=== PATIENT | male | born 1965 | race Caucasian/White ===

== ENCOUNTER → 2016-04-05 | Outpatient (CLI) | payer BC, OTHER ==
[~2016-04-05] MED LIST: ASPEC81 PO; ATOR-26 PO; NIAC500T11 PO; OXYC-57 PO
[2016-04-05 14:25] LABS: ALT/SGPT 26 U/L (12-78); BLOOD UREA NITROGEN 16 mg/dl (7-18); BUN/CREATININE RATIO 14.7 (10-20); CALCIUM 8.9 mg/dl (8.5-10.1); CARBON DIOXIDE 27 mmol/L (21-32); CHLORIDE 105 mmol/L (98-107); CHOLESTEROL 177 mg/dl (0-200); GLUCOSE 108 mg/dl (70-99); SODIUM 141 mmol/L (136-145); TRIGLYCERIDES 133 mg/dl (0-150); VERY LOW DENSITY LIPOPROT CALC 27 mg/dl
[2016-04-05 14:30] LABS: CHOLESTEROL/HDL RATIO 4.2; HDL CHOLESTEROL 42 mg/dl; PROSTATE SPECIFIC ANTIGEN 0.579 ng/ml (0.000-4.000)
== END | disposition home or self-care (01) ==
LOC: C.LABMFLN 04-05 07:51
PROVIDERS: ATTEND Family Medicine
DX: Z12.5 Encounter for screening for malignant neoplasm of prostate (principal); E78.00 Pure hypercholesterolemia, unspecified

== ENCOUNTER → 2016-04-08 | Outpatient (CLI) | payer BC, OTHER ==
[2016-04-08 13:14] LABS: MANUAL MICROSCOPIC REQUIRED? NO; REVIEW REQ? NO; URINE APPEARANCE CLEAR (CLEAR); URINE BILIRUBIN NEG (NEG); URINE COLOR YELLOW; URINE NITRITE NEG (NEG); UROBILINOGEN NEG (NEG)
== END | disposition home or self-care (01) ==
LOC: C.LABMFLN 10:30
PROVIDERS: ATTEND Family Medicine
DX: N40.1 Benign prostatic hyperplasia with lower urinary tract symptoms (principal); R39.15 Urgency of urination

== ENCOUNTER → 2017-04-07 | Outpatient (CLI) | payer BC ==
[2017-04-07 14:00] LABS: ALT/SGPT 22 U/L (12-78); BLOOD UREA NITROGEN 14 mg/dl (7-18); CALCIUM 8.4 mg/dl (8.5-10.1); CARBON DIOXIDE 29 mmol/L (21-32); CREATININE 1.07 mg/dl (0.60-1.40); GLUCOSE 104 mg/dl (70-99); POTASSIUM 3.8 mmol/L (3.5-5.1); SODIUM 139 mmol/L (136-145)
[2017-04-07 14:03] LABS: CHOLESTEROL 149 mg/dl (0-200); LDL CHOLESTEROL CALCULATED 80 mg/dl
== END | disposition home or self-care (01) ==
LOC: C.LABMFLN 07:56
PROVIDERS: ATTEND Family Medicine
DX: Z00.00 Encounter for general adult medical examination without abnormal findings (principal); E78.00 Pure hypercholesterolemia, unspecified; M16.12 Unilateral primary osteoarthritis, left hip; Z12.5 Encounter for screening for malignant neoplasm of prostate

== ENCOUNTER 2017-07-31 05:58 | Inpatient (IN) | payer BC, OTHER ==
[2017-07-30 08:03] VITALS: BMI 29.0
--- NOTE | 2017-07-30 08:37 | PAT Medication Instructions ---
Service Date July 30, 2017. Current Home Medication List Acetaminophen (Tylenol), 1,000 MG PO BID Aspirin Enteric Coated (Ecotrin Or Generic), 81 MG PO QAM Loratadine (Claritin), 10 MG PO QAM Polyethylene Glycol 3350 (Miralax), 17 GM PO DAILY PRN for Constipation Ranitidine (Zantac), 150 MG PO BID Rosuvastatin Calcium (Crestor), 40 MG PO QAM Tramadol (Ultram), 1 TAB PO TID PRN for Pain Medication Instructions For Your Scheduled Surgery - Hold the following medications the morning of surgery: Loratadine (Claritin), 10 MG PO QAM Polyethylene Glycol 3350 (Miralax), 17 GM PO DAILY PRN for Constipation - Take the following medications the morning of surgery with a sip of water: Acetaminophen (Tylenol), 1,000 MG PO BID (if needed, can be taken up to four hours before surgery) Aspirin Enteric Coated (Ecotrin Or Generic), 81 MG PO QAM Ranitidine (Zantac), 150 MG PO BID Rosuvastatin Calcium (Crestor), 40 MG PO QAM Tramadol (Ultram), 1 TAB PO TID PRN for Pain (if needed, can be taken up to four hours before surgery) - Take the following medications as scheduled the night before surgery: Acetaminophen (Tylenol), 1,000 MG PO BID Polyethylene Glycol 3350 (Miralax), 17 GM PO DAILY PRN for Constipation (if needed) Ranitidine (Zantac), 150 MG PO BID If you have any questions please call us at [phone] or [phone] or [phone]
--- NOTE | 2017-07-30 09:25 | DIAGNOSTIC IMAGING REPORT ---
CHEST 2 VIEWS ROUTINE HISTORY: Preop. COMPARISON: None. FINDINGS: The lungs are clear. Cardiac silhouette is normal in size. No pleural effusions. No pneumothorax. IMPRESSION: No acute process. Electronically signed by: Isael Regan M.D. 07/30/2017 9:24 AM Dictated Date/Time: 07/30/2017 9:21 AM
[2017-07-30 11:19] LABS: BASO % 0.8 %; BASO ABS # 0.04 K/uL (0-0.2); EOS % 5.6 %; EOS ABS # 0.27 K/uL (0-0.5); HEMATOCRIT 45.3 % (42-52); HEMOGLOBIN 15.6 g/dL (14.0-18.0); IG# 0.01 K/uL (0.00-0.02); LYMPH % 44.1 %; LYMPH ABS # 2.11 K/uL (1.2-3.4); MEAN CELL VOLUME 91.5 fL (80-100); MEAN CORPUSCULAR HEMOGLOBIN 31.5 pg (25-34); MEAN CORPUSCULAR HGB CONC 34.4 g/dl (32-36); MEAN PLATELET VOLUME 9.5 fL (7.4-10.4); MONO % 10.9 %; MONO ABS # 0.52 K/uL (0.11-0.59); NEUT % 38.4 %; NEUT ABS # 1.83 K/uL (1.4-6.5); PLATELET COUNT 171 K/uL (130-400); RED CELL DISTRIBUTION WIDTH SD 43.3 fL (36.4-46.3); WHITE BLOOD COUNT 4.78 K/uL (4.8-10.8)
[2017-07-30 11:27] LABS: INR 0.9 (0.9-1.1); PTT PATIENT 25.7 SECONDS (21.0-31.0)
[2017-07-30 11:42] LABS: CREATININE 0.98 mg/dl (0.60-1.40)
--- NOTE | 2017-07-30 18:19 | HISTORY & PHYSICAL EXAMINATION ---
DATE OF ADMISSION: 07/31/2017 CHIEF COMPLAINT: Left hip pain. HISTORY OF PRESENT ILLNESS: A 52-year-old gentleman recently retired who presents for treatment of his left hip. He is referred to me by his primary care doctor for evaluation and treatment of his left hip. He has a several-month history of markedly increasing left hip pain and discomfort. He was initially seen by Dr. Beasley who is managing him for some back issues and put some injections around his back, which did not help at all. He describes mostly lateral hip pain, groin pain radiating down to his knee. The more he walks, the more it hurts. He has taken various anti-inflammatories without much relief. He did take some oral prednisone which seemed to help the most. Pain has become more debilitating. He limps when he walks. The more he walks, he hurts. He really has more pain the next day if he is very active. He would like to have his left hip fixed. PAST MEDICAL HISTORY: 1. Elevated cholesterol. 2. Arthritis. 3. A [id number] history of smoking. PAST SURGICAL HISTORY: Include: 1. Neck surgery done by Dr. Son in 2010. 2. Right knee scope done by Ora in 2010. ALLERGIES: None. CURRENT MEDICATIONS: 1. Crestor. 2. Ranitidine. 3. Aspirin. 4. Aleve. SOCIAL HISTORY: A 52-year-old male. He is a retired rn [employer]. He is . One drink per week. Chews tobacco. FAMILY HISTORY: Significant for heart disease and lung cancer. REVIEW OF SYSTEMS: Negative for diabetes, neurologic problems, vascular problems, bleeding disorders. Denies any chest pain, no shortness of breath. No history of DVT or PE. PHYSICAL EXAMINATION: GENERAL: Reveals a pleasant, middle-aged male, looks to be in good health. HEENT: Benign. NECK: Supple. No lymphadenopathy. LUNGS: Clear to auscultation. HEART: Has a regular rate and rhythm. ABDOMEN: Soft, nontender, nondistended. EXTREMITIES: Grossly neurovascularly intact except as follows. Examination of left hip reveals the patient walks with a significant antalgic gait and limps on his left side. Seems to have a little bit of a flexion contracture of his hip as he walks a little bit hunched over. Leg lengths are equal. He has pain with hip motion, particularly internal rotation. I can internally rotate to neutral. Negative straight leg raise. X-RAYS: X-rays of the left hip were reviewed. Shows significant medial arthritic change with narrowing of his medial joint space and osteophytes inferiorly. A superior joint space is pretty well maintained. We did get an MRI of his hip from previously due to his severe pain and x-ray findings. MRI shows a joint effusion. He has got some bone marrow edema in the femoral head at the superior aspect. 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 Radiographs are not severe, but his MRI confirms significant inflammation of the hip which is consistent with his exam. He has failed all conservative treatment. PLAN: We talked about treatment. After following him for a while I am convinced that most of the pain is coming from his hip joint. I did talk to him about his exam and findings and symptoms are a bit more severe than I would suspect based on his radiographs. Despite this, I think it is reasonable to proceed with hip replacement considering his convincing exam and physical findings. He is strongly desiring to proceed with hip replacement. We will take him to the operating room and do left total hip replacement. The risks and benefits of this procedure were explained to the patient including but not limited to DVT, PE, , infection, neurological injury, vascular injury, bleeding problem, pain, limited range of motion, stiffness, failure to symptoms, incomplete relief of symptoms, need for further surgery in the future, fracture, leg length inequality, nerve palsy, dislocation, need for revision surgery. The patient understands and desires to proceed. Informed consent was obtained.
[~2017-07-31] VITALS: Ht 188 cm; Wt 102.0 kg
[2017-07-31] VITALS (20 sets, daily range): BP systolic 101–130; BP diastolic 63–87; PULSE 55–77; TEMP 36.4–37.5; O2SAT 95–100; Ht 188 cm; Wt 102.0 kg
[~2017-07-31 05:58] MED LIST changes: +ACET-1256 PO; -ASPEC81 PO; +ASPI-319 PO; -ATOR-26 PO; +CLR10 PO; -NIAC500T11 PO; -OXYC-57 PO; +POLY335019 PO; +RANI150T85 PO; +ROSU40TA PO; +TRAM-10 PO
[2017-07-31] MEDS ORDERED: FAMOTIDINE 20 MG TAB PO SCH (06:00)
[2017-07-31] MEDS ORDERED: LACTATED RINGER'S 1000ML 500 ML IV SCH (06:00)
[2017-07-31] MEDS ORDERED: ACETAMINOPHEN 500 MG TAB PO SCH (06:00)
[2017-07-31] MEDS ORDERED: METOCLOPRAMIDE HCL 10 MG TAB PO SCH (06:00)
[2017-07-31] MEDS ORDERED: GABAPENTIN 600 MG PO SCH (06:00)
[2017-07-31] MEDS ORDERED: TRANEXAMIC ACID INJ 1,000 MG x 1 Bag Preop IV SCH ×2 (06:00)
[2017-07-31] MEDS ORDERED: LACTATED RINGER'S 1000ML IV SCH (06:00)
[2017-07-31] MEDS ORDERED: CEFAZOLIN 2000MG IV PUSH 15 ML IV SCH (06:00)
[2017-07-31] MEDS ORDERED: SCOPOLAMINE 1.5 MG TDSY TD SCH (06:00)
[2017-07-31] MEDS ORDERED: LACTATED RINGER'S 1000ML 1,000 ML IV SCH (06:00)
--- NOTE | 2017-07-31 06:49 | History & Physical Bridge Note ---
H&P Re-Evaluation Bridge Note: I have examined the patient, reviewed the History & Physical and in the interval since the performance of the History & Physical I have noted the following changes of clinical significance: No changes noted
[2017-07-31] MEDS ORDERED: BUPIVACAINE 0.5 % 5 MG/1 ML PF 10ML VIAL ONE (06:58)
[2017-07-31] MEDS ORDERED: FENTANYL CITRATE INJ 50 MCG/1 ML 2 ML VIAL ONE (07:59)
[2017-07-31] MEDS ORDERED: MIDAZOLAM HCL 1 MG/ML 2ML VIAL ONE (08:00)
[2017-07-31] MEDS ORDERED: EpINEphrine INJ 1MG/ML AMP 1 MG/ML AMP ONE (08:25)
[2017-07-31] MEDS ORDERED: BACITRACIN 50000 UNIT VIAL ONE (08:25)
[2017-07-31] MEDS ORDERED: MoRPHine SULFATE PF 1 MG/ML 10 ML AMP/VIAL ONE ×2 (08:47→08:48)
[2017-07-31] MEDS ORDERED: BUPIVACAINE/EPINEPHRINE 0.5% MPF 1:200,000 30 ML VIAL INFIL ONE (09:30)
[2017-07-31] MEDS ORDERED: LACTATED RINGER'S 1000ML 500 ML IV PRN (09:34)
[2017-07-31] MEDS ORDERED: SODIUM CHLORIDE 0.9% 1000ML 1,000 ML IV PRN (09:34)
[2017-07-31] MEDS ORDERED: NALOXONE HCL INJ 0.08 MG in SYRINGE 1.8 ML IV PRN (09:34)
[2017-07-31] MEDS ORDERED: NALOXONE HCL INJ 1 MG in SODIUM CHLORIDE 0.9% 1000ML 1,000 ML IV PRN (09:34)
[2017-07-31] MEDS ORDERED: MoRPHine SULFATE PF 1 MG/ML 10 ML AMP/VIAL EPI PRN (09:45)
[2017-07-31] MEDS ORDERED: ATROPINE SULFATE 0.1 MG/ML 5ML SYR IV PRN (09:45)
[2017-07-31] MEDS ORDERED: NALOXONE HCL 0.4 MG/1 ML VIAL/CARP IV PRN (09:45)
[2017-07-31] MEDS ORDERED: BUPIVACAINE/EPINEPHRINE 0.5% MPF 1:200,000 30 ML VIAL ONE ×2 (09:45→09:47)
[2017-07-31] MEDS ORDERED: EpHEDrine SULFATE INJ 50 MG/ML AMP IV PRN ×2 (09:45)
[2017-07-31] MEDS ORDERED: NALBUPHINE HCL INJ 10 MG/ML AMP IV PRN (09:45)
[2017-07-31] MEDS ORDERED: DiphenhydrAMINE HCL 50 MG/ML VIAL IV PRN (09:45)
[2017-07-31] MEDS ORDERED: NO NARCOTICS OR SEDATIVES SCH (09:45)
[2017-07-31] MEDS ORDERED: ONDANSETRON INJ 2 MG/ML 2 ML VIAL ONE (10:06)
[2017-07-31] MEDS ORDERED: PROPOFOL IV EMULSION 10 MG/ML 20 ML VIAL ONE (10:06)
--- NOTE | 2017-07-31 10:40 | [facility] Post Operative Brief Note ---
Immediate Operative Summary Operative Date July 31, 2017. Pre-Operative Diagnosis Left Hip DJD Post-Operative Diagnosis Same Procedure(s) Performed Left Total Hip Arthroplasty Surgeon Giorgio Soil Science Professor Surgeon(s) JANNETH Dueñas Estimated Blood Loss 300 cc Findings Consistent with Post-Op Diagnosis Fluids (cc crystalloids) 1500 cc Specimens Femoral Head Drains None Anesthesia Type Spinal MAC Complication(s) none Disposition Accompanied Pt To Recover: yes Disposition: Recovery Room / PACU Overlapping Procedure I was present for: the critical portions of procedure. I was immediately available: during the entire case
[2017-07-31] MEDS ORDERED: SILVER SULFADIAZINE 1% CR 50 GM JAR EXT PRN (10:45)
[2017-07-31] MEDS ORDERED: POLYETHYLENE (MIRALAX) 17 GM PACK PO PRN (10:45)
[2017-07-31] MEDS ORDERED: TAMSULOSIN HCL 0.4 MG CAP PO PRN (10:45)
[2017-07-31] MEDS ORDERED: CEFAZOLIN IV 2,000 MG in DEXTROSE 5% 50ML 50 ML IV SCH (10:45)
[2017-07-31] MEDS ORDERED: ALUMINUM/MAGNESIUM/SIMETH (MAALOX MAX) 30 ML UDC PO PRN (10:45)
[2017-07-31] MEDS ORDERED: METOCLOPRAMIDE HCL INJ 5 MG/ML 2 ML VIAL IV PRN (10:45)
[2017-07-31] MEDS ORDERED: BISACODYL 10 MG SUPP PR PRN (10:45)
[2017-07-31] MEDS ORDERED: MAGNESIUM HYDROXIDE SUSP 30 ML UDC PO PRN (10:45)
[2017-07-31] MEDS ORDERED: ONDANSETRON INJ 2 MG/ML 2 ML VIAL IV PRN (10:45)
--- NOTE | 2017-07-31 11:36 | DIAGNOSTIC IMAGING REPORT ---
L PELVIS/UNILATERAL HIP 1 VIEW CLINICAL HISTORY: Left hip degenerative joint disease. Arthritis. COMPARISON: Left hip radiograph July 24, 2017. FINDINGS: Alignment of the total left hip arthroplasty is anatomic. There is no fracture or unexpected radiopaque foreign body. Acetabular screws and skin yu. IMPRESSION: Expected findings following total left hip arthroplasty. Electronically signed by: Rich Benavidez M.D. 07/31/2017 11:35 AM Dictated Date/Time: 07/31/2017 11:34 AM
--- NOTE | 2017-07-31 11:37 | Anesthesiology Progress Note ---
Anesthesia Post Op Note Date & Time July 31, 2017 at 11:37 Vital Signs Pain Intensity: 0 Vital Signs Past 12 Hours Date Time Temp Pulse Resp B/P (MAP) Pulse Ox O2 Delivery O2 Flow Rate FiO2 07/31/17 11:33 54 11 108/68 07/31/17 11:33 54 11 97 07/31/17 11:31 88/58 07/31/17 11:28 52 11 97 07/31/17 11:28 52 11 07/31/17 11:26 100/58 07/31/17 11:23 55 10 07/31/17 11:23 52 10 97 07/31/17 11:21 93/58 07/31/17 11:18 54 11 100 07/31/17 11:18 53 11 07/31/17 11:17 55 14 07/31/17 11:17 54 14 98 07/31/17 11:16 36.4 50 16 104/61 (68) 98 Nasal Cannula 2 07/31/17 11:16 104/61 07/31/17 11:12 69 14 97 07/31/17 11:12 65 14 07/31/17 11:11 93/64 07/31/17 11:07 70 27 91 07/31/17 11:07 76 27 07/31/17 11:06 112/67 07/31/17 11:02 52 0 99 07/31/17 11:02 54 0 07/31/17 11:01 95/61 07/31/17 10:57 59 9 07/31/17 10:57 54 9 100 07/31/17 10:56 104/60 07/31/17 10:55 53 10 98 07/31/17 10:55 57 10 07/31/17 10:51 97/62 07/31/17 10:50 56 11 07/31/17 10:50 54 11 99 07/31/17 10:46 96/61 07/31/17 10:45 62 15 07/31/17 10:45 15 07/31/17 10:41 93/88 07/31/17 10:40 81 19 85 07/31/17 10:40 36.4 73 16 93/88 (91) 95 Oxymask 10 07/31/17 10:40 185 19 07/31/17 06:40 36.7 65 18 130/87 99 Room Air Notes Mental Status: alert / awake / arousable, participated in evaluation Pt Amnestic to Procedure: Yes Nausea / Vomiting: adequately controlled Pain: adequately controlled Airway Patency, RR, SpO2: stable & adequate BP & HR: stable & adequate Hydration State: stable & adequate Neuraxial Anesthesia: was administered, sensory block is resolving Anesthetic Complications: no major complications apparent
[2017-07-31] MEDS ORDERED: PHENYLEPHRINE HCL INJ 10 MG/ML VIAL ONE (12:30)
--- NOTE | 2017-07-31 12:36 | OPERATIVE REPORT ---
DATE OF OPERATION: 07/31/2017 SURGEON: Lucio Alvares MD SETUP OPERATOR: JOSE Espinoza PREOPERATIVE DIAGNOSIS: Left hip degenerative joint disease. POSTOPERATIVE DIAGNOSIS: Left hip degenerative joint disease. PROCEDURE PERFORMED: Left uncemented ceramic on highly cross-linked polyethylene total hip arthroplasty. COMPLICATIONS: None. ESTIMATED BLOOD LOSS: 300 mL. FLUID REPLACEMENT: 1500 mL crystalloid fluid replacement. ANESTHESIA: Spinal. DRAINS: None. SPECIMENS: Left femoral head sent for pathology. 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 He had failed all extensive conservative treatment. X-ray showed some moderate hip arthritis, particularly medially. Not a lot of superior disease. We did get an MRI which showed a joint effusion and some bone marrow edema. He had failed conservative treatment and elected to proceed with total hip arthroplasty. OPERATIVE FINDINGS: Operative findings revealed advanced left hip arthritis of the femoral head. He had osteophytes around the femoral head as well. The acetabular cartilage was not really damaged significantly but he did have osteophytes around the anterior and posterior aspects of the acetabulum. He did have a fairly tight hip as well. This leg would clinically appear just a little bit longer than the other leg preoperatively. OPERATIVE IMPLANTS: Operative implants consisted of: 1. Biomet size 58 mm G7 acetabular shell. 2. A 6.5 cancellous acetabular screws, 1 at 35 mm length and 1 at 30 mm length. 3. An apex hole eliminator. 4. A highly cross-linked polyethylene liner with a 58 mm outer diameter, 36 mm inner diameter with a friedman placed inferior and posterior. 5. A DePuy Corail size 15 KLA/coxa vara femoral stem. 6. A +8.5/36 mm ceramic articular ball. OPERATIVE PROCEDURE: Patient was taken to the operating room, identified and placed on the operating table in supine position. All contact areas were appropriately padded. IV antibiotics were provided by the anesthesia team. A spinal anesthetic had been implemented in the holding area. Valdez catheter was placed in sterile fashion. The patient was then placed in the right lateral decubitus position. An axillary roll was placed. [facility] was used for positioning. Left hip and leg were then prepped and draped in the usual sterile fashion. A posterolateral approach to the left hip was then performed through a curvilinear incision centered over the greater trochanter. Sharp dissection was carried through subcutaneous tissue down to the level of the IT band and gluteal fascia. The IT band and gluteal fascia were incised longitudinally in line with skin incision. The underlying greater trochanteric bursa was excised. The piriformis and external rotators and the posterior capsule were then released in a single layer from the posterior aspect of the hip. Great care was taken throughout the procedure to protect the sciatic nerve at all times. I did place a tag suture through the piriformis for later repair. Hip was internally rotated and dislocated. Femoral neck osteotomy cut was made with the final cut a centimeter above the lesser trochanter. Femoral head was removed and sent for pathology. The femur was retracted anteriorly. Attention was then drawn to the acetabulum. The acetabular labrum was excised. The pulvinar fat was excised. Sequential reaming of the acetabulum was then performed beginning with a size 49 and progressing up to a 57. A 58 mm Biomet G7 acetabular shell was then placed in about 40 degrees of lateral opening and 20 degrees of anteversion. It was fixed with two 6.5 cancellous acetabular screws. Some osteophytes were taken off anteriorly. A trial liner was placed. Attention was then drawn to the femur. The proximal femur was entered with a cookie cutter followed by canal finder. We did not use a lateralizing reamer. I then broached beginning with a size 7 progressing up to 15. We got excellent fit with a #15. I then used a calcar planer to smooth off the calcar. We then trialed the hip. The hip was fairly stable in all positions, but the soft tissue tension was lax, so we used the +8.5 head to maximize soft tissue tension. Even with this it was a little bit lax. His hip was fully stable in full extension and external rotation, flexion to 90 degrees, internal rotation to [address] a friedman inferior and posterior to maximize the stability in flexion. We elected to place these implants. All trial implants were removed. An apex hole eliminator was placed. Highly cross-linked polyethylene liner was placed with a friedman placed inferior and posterior. A Corail size 15 KLA/coxa vara femoral stem was impacted in position. I then did place the +8.5 articular ball and hip was located and once again found to be stable. Attention was then drawn toward closing. The wounds were irrigated with copious amounts of pulsatile lavage solution. I did inject locally with 60 mL of 0.5% Marcaine with epinephrine. The posterior capsule and external rotators were then repaired through drill holes in the posterior trochanter as a single layer with #2 Ti-Cron suture. The IT band and gluteal fascia were then closed with #1 PDS suture in running fashion. The subcutaneous tissues were then closed in 2 layers with the deep layer #1 Vicryl suture and the subcutaneous tissues with 2-0 Dexon suture in a buried interrupted fashion. Skin was closed skin yu. Leg was then cleaned and dried and a sterile dressing of Xeroform, 4 x 4's, ABD pad and foam tape was applied. Patient was then transferred to the recovery room in stable condition. The patient tolerated the procedure with no complication. All needle and sponge counts were correct at the end of the operation. I attest to the content of the Intraoperative Record and any orders documented therein. Any exception s are noted below.
[2017-07-31] MEDS: FERROUS GLUCONATE 324 MG TAB PO SCH ×2 (13:06→17:19)
[2017-07-31] MEDS: D5W AND 1/2NSS + 20MEQ KCL 1,000 ML IV SCH ×2 (13:07→19:39)
[2017-07-31] MEDS: KETOROLAC TROMETHAMINE 30 MG/ML VIAL IV. SCH ×2 (13:09→19:20)
[2017-07-31] MEDS: ACETAMINOPHEN 500 MG TAB PO SCH ×2 (13:15→22:31)
[2017-07-31] MEDS ORDERED: NURSING VERBAL MED ORDER ONE (16:00)
[2017-07-31] MEDS: CHECK SCOPOLAMINE PATCH PLACEMENT SCH (16:00)
[2017-07-31] MEDS ORDERED: TRANEXAMIC ACID INJ 1,000 MG in SODIUM CHLORIDE 0.9% 100ML 100 ML IV ONE (16:30)
[2017-07-31] MEDS: CEFAZOLIN IV 2,000 MG in SYRINGE 0 ML IV SCH (17:18)
[2017-07-31] MEDS: NICOTINE 14 MG/24 HR TDSY TD SCH (17:33)
--- NOTE | 2017-07-31 17:56 | PROGRESS NOTE ---
DATE: 07/31/2017 SUBJECTIVE: A 52-year-old gentleman postop from a left total hip replacement. He is doing well. No pain yet. No chest pain or shortness of breath. Not feeling dizzy or lightheaded. OBJECTIVE: VITAL SIGNS: Temperature is 36.5. Vital signs stable. PHYSICAL EXAMINATION: GENERAL: Reveals a healthy, pleasant, middle-aged male. He is sitting up in bed and talking to his family. Looks comfortable. LUNGS: Clear to auscultation. HEART: Has a regular rate and rhythm. ABDOMEN: Soft, nontender, nondistended. EXTREMITIES: Grossly neurovascularly intact except as follows: Examination of the left hip and leg reveals leg lengths to be equal. Hip is located. Dressing is clean, dry and intact. Thigh is soft and supple. He is neurologically intact. He can dorsiflex and plantarflex his foot appropriately. X-RAYS: X-ray of left hip from recovery room reviewed. Shows left uncemented total hip arthroplasty. Components look to be in good position. No signs of problems. ASSESSMENT: A 52-year-old gentleman postop from a left total hip replacement, doing well. Pain is controlled. Hip is located. He is neurologically intact. PLAN: 1. DVT prophylaxis including thigh-high TEDs, SCDs, and aspirin twice a day. 2. PT and OT. Weight bear as tolerated. Left total hip protocol. 3. Pain control, doing well with current pain regimen. 4. IV antibiotics x24 hours. 5. Disposition: Plan to discharge to home with some home health once adequately recovered.
[2017-07-31] MEDS ORDERED: RXC5 PO (19:57)
[2017-07-31] MEDS ORDERED: ACET-24 PO (19:57)
[2017-07-31] MEDS ORDERED: ASPI-320 PO (19:57)
--- NOTE | 2017-07-31 20:00 | Discharge Instructions ---
Discharge Instructions Date of Service July 31, 2017. Admission Reason for Admission: Left Hip Degenerative Joint Disease Discharge Discharge Diagnosis / Problem: Left Hip Replacement Discharge Goals Goal(s): Decrease discomfort, Improve function, Increase independence, Improve disease control, Therapeutic intervention Activity Recommendations Activity Limitations: per Instructions/Follow-up section (Total Hip Precautions ) Weightbearing Status: Left weightbearing . Instructions / Follow-Up Instructions / Follow-Up ACTIVITY RECOMMENDATIONS: Physical Therapy: * Aggressive physical therapy is not usually needed. You will learn to take care of yourself safely and walk. * Follow the "Hip Precautions Instructions." * In some cases, the social science instructor at the hospital will arrange to have a therapist come to your house for the first couple of weeks to help you learn these skills. * You need to practice on your own or with the help of a family member as needed. * When you learn these skills, most of the therapy can be done on your own. Home Exercise: * You were shown a series of exercises in the hospital. Do these exercises three to four times each day including the exercises you were shown in physical therapy. Walking: * Get up and walk several times each day. For the first four weeks, try not to stand or walk for more than one hour at a time. If you do stand or walk for more than one hour, you will not hurt anything, but your leg will likely swell. * As you feel comfortable, you may change from the walker or crutches to a cane and then to independent walking. MEDICATIONS: New Medicine: * You will likely be taking one or more of these medicines: 1. Oxycodone or Tramadol - Take, as directed, when you need it, every four to six hours to control your pain. 2. Aspirin - Thins your blood to lessen the chance of forming a blood clot. * The most common side effects of pain medicine and iron are nausea and constipation. If nausea or constipation is too much of a problem or if you have any questions about your new medicines or doses, call [facility] at . We will try to help you manage these issues. VERY IMPORTANT TO READ AND REVIEW" Pain: * The immediate post-operative period after hip replacement surgery is often quite painful. * You are given a prescription for pain medicine. You should take it, as directed, when you need it, especially before physical therapy and before going to bed. Pain that interferes with sleep is very common and can last several months. * You will likely need pain medicine for the first two to four weeks. It will not stop all of the pain. The pain will lessen and as you feel better, you may change to milder pain medicine such as Tylenol. * The most common side effects of pain medicine are nausea and constipation, so don't take more than you need. SPECIAL CARE INSTRUCTIONS: TEDs/Elastic Stockings: * The white elastic stockings help limit swelling and prevent blood clots from forming in your legs. The more you wear them, the more they work. * Wear them for six weeks. Prevention of Infection: * Take antibiotics one hour before any dental cleaning, dental work, urological procedure, gastrointestinal procedure or any invasive surgery in order to prevent your new joint from getting infected. * You may get the antibiotics from the doctor performing the procedure or you may call our office at before and we will call in a prescription to the pharmacy of your choice. Things to Watch For: * Drainage from the incision site that occurs more than one week after your surgery. * Severely increased leg pain or swelling. * Increased redness at the incision site. * Fever above 102 degrees Fahrenheit. * Unusual chest pain or shortness of breath. * Unusual pain or burning with urination. Call [facility] at with any of the above problems or if you have any questions about your medicines or recovery. FOLLOW UP VISIT: Make an appointment to see your doctor for approximately two weeks after surgery for a progress check and staple removal by calling the office at . Current Hospital Diet Patient's current hospital diet: Regular Diet Discharge Diet Recommended Diet: Regular Diet Procedures Procedures Performed: Left total hip arthroplasty uncemented Pending Studies Studies pending at discharge: no Medical Emergencies . Who to Call and When: Medical Emergencies: If at any time you feel your situation is an emergency, please call [phone] immediately. . Non-Emergent Contact Non-Emergency issues call your: Surgeon . "Provider Documentation" section prepared by Lucio Alvares. .
[2017-07-31] MEDS ORDERED: SENNA 8.6 MG TAB PO SCH (21:00)
[2017-07-31] MEDS: ASPIRIN 81 MG ECTAB PO SCH (22:30)
[2017-07-31] MEDS: DOCUSATE SODIUM 100 MG CAP PO SCH (22:30)
[2017-07-31] MEDS: RANITIDINE HCL 150 MG TAB PO SCH (22:31)
[2017-08-01] VITALS (13 sets, daily range): BP systolic 101–114; BP diastolic 65–70; PULSE 65–71; TEMP 36.8; O2SAT 95–97
[2017-08-01] MEDS: CHECK SCOPOLAMINE PATCH PLACEMENT SCH ×2 (00:02→07:57)
[2017-08-01] MEDS: CEFAZOLIN IV 2,000 MG in SYRINGE 0 ML IV SCH (01:00)
[2017-08-01] MEDS: KETOROLAC TROMETHAMINE 30 MG/ML VIAL IV. SCH ×2 (01:00→06:38)
[2017-08-01] MEDS: D5W AND 1/2NSS + 20MEQ KCL 1,000 ML IV SCH ×2 (02:13→09:00)
[2017-08-01] MEDS: ACETAMINOPHEN 500 MG TAB PO SCH (05:35)
[2017-08-01 06:55] LABS: BASO % 0.3 %; BASO ABS # 0.02 K/uL (0-0.2); EOS % 2.4 %; EOS ABS # 0.14 K/uL (0-0.5); HEMOGLOBIN 12.9 g/dL (14.0-18.0); IG# 0.01 K/uL (0.00-0.02); LYMPH % 20.7 %; LYMPH ABS # 1.22 K/uL (1.2-3.4); MEAN CELL VOLUME 91.1 fL (80-100); MEAN CORPUSCULAR HEMOGLOBIN 30.9 pg (25-34); MEAN CORPUSCULAR HGB CONC 33.9 g/dl (32-36); MEAN PLATELET VOLUME 9.2 fL (7.4-10.4); MONO % 11.7 %; MONO ABS # 0.69 K/uL (0.11-0.59); NEUT % 64.7 %; NEUT ABS # 3.81 K/uL (1.4-6.5); PLATELET COUNT 131 K/uL (130-400); RED CELL DISTRIBUTION WIDTH SD 43.7 fL (36.4-46.3); WHITE BLOOD COUNT 5.89 K/uL (4.8-10.8)
[2017-08-01 07:21] LABS: CREATININE 1.01 mg/dl (0.60-1.40); POTASSIUM 4.3 mmol/L (3.5-5.1)
--- NOTE | 2017-08-01 08:20 | PROGRESS NOTE ---
DATE: 08/01/2017 SUBJECTIVE: This is a 52-year-old gentleman postop day 1 from a left hip replacement. He is doing quite well. He is getting around well. The pain is controlled. No chest pain or shortness of breath. Not feeling dizzy or lightheaded. OBJECTIVE: VITAL SIGNS: Temperature is 36.8. Vital signs stable. PHYSICAL EXAMINATION: GENERAL: Physical examination shows a pleasant middle-aged male. He is sitting in a bedside chair, looks comfortable. EXTREMITIES: Examination of the left hip reveals the dressing to be clean, dry, and intact. His hip is located. He is neurologically intact. LABORATORIES: Hemoglobin 12.9. hematocrit 38.0. Electrolytes are stable. ASSESSMENT: This is a 52-year-old gentleman postoperative day 1 from a left hip replacement, doing well. Pain is controlled. The hip is located. He is neurologically intact. PLAN: 1. DVT prophylaxis including thigh-high TEDs, SCDs, and aspirin twice a day. 2. PT/OT. Weightbear as tolerated. Left total hip protocol. 3. Pain is controlled, doing well with the current pain regimen. 4. Disposition: Plan to discharge to home once adequately recovered.
--- NOTE | 2017-08-01 08:38 | Anesthesiology Progress Note ---
Anesthesia Post Op Note Date & Time August 01, 2017 at 08:37 Vital Signs Pain Intensity: 0.0 Vital Signs Past 12 Hours Date Time Temp Pulse Resp B/P (MAP) Pulse Ox O2 Delivery O2 Flow Rate FiO2 08/01/17 07:50 18 97 08/01/17 06:50 17 96 08/01/17 06:44 71 19 108/70 (83) 95 Room Air 08/01/17 05:50 18 97 08/01/17 04:50 17 96 08/01/17 03:50 18 97 08/01/17 03:32 36.8 65 18 101/67 (78) 97 Room Air 08/01/17 02:50 16 96 08/01/17 01:50 17 96 08/01/17 00:50 17 97 08/01/17 00:10 Room Air 07/31/17 23:50 36.6 77 16 112/67 (82) 96 Room Air 07/31/17 23:50 16 96 07/31/17 22:50 18 98 07/31/17 21:50 18 100 07/31/17 20:50 18 99 Notes Mental Status: alert / awake / arousable, participated in evaluation Pt Amnestic to Procedure: Yes Nausea / Vomiting: adequately controlled Pain: adequately controlled Airway Patency, RR, SpO2: stable & adequate BP & HR: stable & adequate Hydration State: stable & adequate Neuraxial Anesthesia: sensory block resolved Anesthetic Complications: no major complications apparent
[2017-08-01] MEDS ORDERED: MULTIVITAMIN TAB PO SCH (09:00)
[2017-08-01] MEDS ORDERED: DC INTRASPINAL MORPHINE SCH (09:00)
[2017-08-01] MEDS: NICOTINE 14 MG/24 HR TDSY TD SCH (09:00)
[2017-08-01] MEDS ORDERED: LORATADINE 10 MG TAB PO SCH (09:00)
[2017-08-01] MEDS ORDERED: PANTOprazole SOD 40 MG TAB PO SCH (09:00)
[2017-08-01] MEDS ORDERED: ROSUVASTATIN CALCIUM 20 MG TAB PO SCH (09:00)
[2017-08-01] MEDS ORDERED: TAPENTADOL ER 50 MG TABCR PO SCH (09:00)
[2017-08-01] MEDS ORDERED: MoRPHine SULFATE 4 MG/ML 1 ML CARP\\VIAL IV PRN (09:00)
[2017-08-01] MEDS ORDERED: DiphenhydrAMINE HCL 50 MG/ML VIAL IV PRN (09:00)
[2017-08-01] MEDS ORDERED: OXYCODONE HCL IR 5 MG TAB (IMMEDIATE RELEASE) PO PRN (09:00)
[2017-08-01] MEDS: ASPIRIN 81 MG ECTAB PO SCH ×2 (09:15→10:25)
[2017-08-01] MEDS: DOCUSATE SODIUM 100 MG CAP PO SCH (09:17)
[2017-08-01] MEDS: FERROUS GLUCONATE 324 MG TAB PO SCH (09:17)
[2017-08-01] MEDS: RANITIDINE HCL 150 MG TAB PO SCH (09:17)
[2017-08-01] MEDS ORDERED: ZOLPIDEM TARTRATE 5 MG TAB PO PRN (20:00)
== END 2017-08-01 11:45 | disposition home health service (06) | DRG 470 ==
LOC: C.ACU 05:58 → C.3E 10:44 → ENRESERV 11:34
PROVIDERS: ADMIT Orthopaedic Surgery Sports Medicine; ATTEND Orthopaedic Surgery Sports Medicine
PROC: 0SRB04A Replacement of Left Hip Joint with Ceramic on Polyethylene Synthetic Substitute, Uncemented, Open Approach (ICD-10-PCS; principal; 2017-07-31 09:00)
DX: M16.12 Unilateral primary osteoarthritis, left hip (principal); M25.452 Effusion, left hip; M24.552 Contracture, left hip; E78.00 Pure hypercholesterolemia, unspecified; K21.9 Gastro-esophageal reflux disease without esophagitis; F17.210 Nicotine dependence, cigarettes, uncomplicated; Z98.1 Arthrodesis status; Z79.82 Long term (current) use of aspirin; Z79.899 Other long term (current) drug therapy